=== PATIENT | female | born 1980 | race African-American/Black ===

== ENCOUNTER 2018-06-24 18:58 | Outpatient (CLI) | payer OTHER ==
[2018-06-24 21:14] LABS: ADD UMIC YES; UR ASCORBIC ACID NEGATIVE (NEGATIVE); UR BACTERIA FEW /HPF (NONE SEEN); UR BILIRUBIN (Dip) NEGATIVE (NEGATIVE); UR BLOOD (Dip) NEGATIVE (NEGATIVE); UR CLARITY SLIGHTLY CLOUDY (CLEAR); UR COLOR YELLOW (YELLOW); UR GLUCOSE (Dip) NEGATIVE (NEGATIVE); UR KETONES (Dip) NEGATIVE (NEGATIVE); UR LEUKOCYTE ESTERASE (Dip) 3+ Leu/ul (NEGATIVE); UR NITRITE (Dip) NEGATIVE (NEGATIVE); UR RBC 0 /HPF (0-5); UR SPECIFIC GRAVITY (Dip) 1.016 (1.003-1.030); UR SQUAMOUS EPITHELIAL CELL MODERATE /HPF (FEW); UR TOTAL PROTEIN (Dip) NEGATIVE (NEGATIVE); UR UROBILINOGEN (Dip) NEGATIVE (NEGATIVE); UR WBC 10 /HPF (0-5)
[2018-06-24 21:40] LABS: RUPTURE FETAL MEMBRANES NEGATIVE (NEGATIVE)
== END 2018-06-24 23:13 | disposition home or self-care (01) ==
LOC: OBT 18:58 → L-D 18:59 → OBT 23:13
DX: O47.1 False labor at or after 37 completed weeks of gestation (principal); O09.513 Supervision of elderly primigravida, third trimester; Z3A.39 39 weeks gestation of pregnancy
CPT/HCPCS: 76818; 81001; 84112; 87086

== ENCOUNTER 2018-07-01 13:03 | Inpatient (IN) | payer OTHER ==
[2018-07-01] MEDS ORDERED: OXYTOCIN 30 UNITS/LR 500 ML IV ×2 (14:00)
[2018-07-01] MEDS: MISOPROSTOL 100 MCG TAB VAG (14:00)
[2018-07-01] MEDS ORDERED: MISOPROSTOL 200 MCG TAB PR (14:00)
[2018-07-01] MEDS ORDERED: CARBOPROST 250 MCG INJ IM (14:00)
[2018-07-01] MEDS ORDERED: LIDOCAINE 1% (MPF) 30 ML INJ INJ (14:00)
[2018-07-01] MEDS: LACTATED RINGER'S 1,000 ML IV* ×2 (16:19→23:44)
[2018-07-01] MEDS: DINOPROSTONE 10 MG VAG SUPP VAG (16:19)
[2018-07-01 16:32] LABS: ADD MAN DIFF? NO
[2018-07-01 16:35] LABS: WHITE BLOOD COUNT 8.9 10^3/ul (4.8-10.8)
[2018-07-01 16:35] LABS: BASOPHILS % 0.1 % (0.0-2.0); EOSINOPHILS # 0.1 10^3/ul (0.0-0.5); EOSINOPHILS % 1.6 % (0.0-7.0); HEMATOCRIT 32.6 % (37.0-47.0); HEMOGLOBIN 10.8 g/dl (12.0-16.0); IMMATURE GRANS #M 0.05 10^3/ul; IMMATURE GRANS % (M) 0.6 %; LYMPHOCYTES # 1.9 10^3/ul (0.8-2.9); LYMPHOCYTES % 21.3 % (15.0-51.0); MEAN CORPUSCULAR HEMOGLOBIN 26.7 pg (29.0-33.0); MEAN CORPUSCULAR HGB CONC 33.1 g/dl (32.0-37.0); MEAN CORPUSCULAR VOLUME 80.5 fl (82.0-101.0); MEAN PLATELET VOLUME 9.4 fl (7.4-10.4); MONOCYTE # 0.7 10^3/ul (0.3-0.9); MONOCYTES % 8.3 % (0.0-11.0); NEUTROPHILS % 68.1 % (39.0-77.0); PLATELET COUNT 265 10^3/UL (140-415); RED BLOOD COUNT 4.05 10^6/ul (4.20-5.40); RED CELL DISTRIBUTION WIDTH 15.2 % (11.5-14.5)
[2018-07-01 16:57] LABS: INR 0.88; PT RATIO 0.9
[2018-07-01 16:58] LABS: PARTIAL THROMBOPLASTIN TIME 28.2 Sec (25.0-35.0)
[2018-07-02] MEDS: BUTORPHANOL 2 MG INJ IV ×2 (02:31→10:57)
[2018-07-02] MEDS: MISOPROSTOL 25 MCG CAPSULE PO (05:43)
[2018-07-02] MEDS: LACTATED RINGER'S 1,000 ML IV* ×3 (07:28→14:35)
[2018-07-02 08:29] LABS: HEPATITIS B SURFACE ANTIGEN NEGATIVE (NEGATIVE)
[2018-07-02] MEDS: OXYTOCIN 30 UNITS/LR 500 ML IV ×2 (09:30→16:37)
[2018-07-02] MEDS ORDERED: FENTAnyl 2MCG/ML-ROPIV 0.2% 100 ML (14:22)
[2018-07-02] MEDS ORDERED: DIPHENHYDRAMINE 50 MG INJ IV (15:00)
[2018-07-02] MEDS ORDERED: FENTAnyl 2MCG/ML-ROPIV 0.2% 100 ML BAG EPI (15:00)
[2018-07-02] MEDS ORDERED: NALOXONE (0.4 MG/ML) INJ IV (15:00)
[2018-07-02] MEDS: METHYLERGONOVINE 0.2 MG INJ IM (16:08)
[2018-07-02] MEDS ORDERED: ZOLPIDEM 5 MG TAB PO (16:30)
[2018-07-02] MEDS ORDERED: BENZOCAINE 20% 56 ML SPRAY TOP (16:30)
[2018-07-02] MEDS ORDERED: METHYLERGONOVINE 0.2 MG TAB PO (16:30)
[2018-07-02] MEDS ORDERED: NA PHOSPHATE/BIPHOS 133 ML ENEMA PR (16:30)
[2018-07-02] MEDS ORDERED: CARBOPROST 250 MCG INJ IM (16:30)
[2018-07-02] MEDS ORDERED: WITCH HAZEL/GLYCERIN PAD PR (16:30)
[2018-07-02] MEDS ORDERED: MISOPROSTOL 200 MCG TAB PR (16:30)
[2018-07-02] MEDS ORDERED: OXYTOCIN 30 UNITS/LR 500 ML IV (16:30)
[2018-07-02] MEDS ORDERED: METHYLERGONOVINE 0.2 MG INJ IM (16:30)
[2018-07-02] MEDS: ONDANSETRON 4 MG INJ IV (17:11)
[2018-07-02] MEDS: LANOLIN 7 GM TUBE TOP (18:57)
[2018-07-02 19:14] LABS: RAPID PLASMA REAGIN NONREACTIVE (NR)
[2018-07-02] MEDS: OXYCODONE/ACETAMINOPHEN (5/325) TAB PO (20:57)
[2018-07-02] MEDS: SENNA/DOCUSATE NA (8.6MG/50MG) TAB PO (20:57)
[2018-07-03] MEDS: LACTATED RINGER'S 1,000 ML IV* ×4 (00:13→16:13)
[2018-07-03] MEDS: OXYCODONE/ACETAMINOPHEN (5/325) TAB PO ×2 (01:18→20:02)
[2018-07-03 09:07] LABS: ADD MAN DIFF? NO
[2018-07-03 09:10] LABS: BASOPHILS % 0.2 % (0.0-2.0); EOSINOPHILS # 0.2 10^3/ul (0.0-0.5); EOSINOPHILS % 1.4 % (0.0-7.0); HEMATOCRIT 30.6 % (37.0-47.0); HEMOGLOBIN 9.8 g/dl (12.0-16.0); LYMPHOCYTES # 2.4 10^3/ul (0.8-2.9); LYMPHOCYTES % 18.8 % (15.0-51.0); MEAN CORPUSCULAR HEMOGLOBIN 25.7 pg (29.0-33.0); MEAN CORPUSCULAR VOLUME 80.3 fl (82.0-101.0); MEAN PLATELET VOLUME 9.6 fl (7.4-10.4); MONOCYTE # 1.3 10^3/ul (0.3-0.9); MONOCYTES % 9.8 % (0.0-11.0); NEUTROPHIL # 8.9 10^3/ul (1.6-7.5); NEUTROPHILS % 69.3 % (39.0-77.0); PLATELET COUNT 214 10^3/UL (140-415); RED BLOOD COUNT 3.81 10^6/ul (4.20-5.40); RED CELL DISTRIBUTION WIDTH 15.2 % (11.5-14.5)
[2018-07-03 09:10] LABS: WHITE BLOOD COUNT 12.9 10^3/ul (4.8-10.8)
[2018-07-03] MEDS: SENNA/DOCUSATE NA (8.6MG/50MG) TAB PO ×2 (09:11→21:01)
[2018-07-03] MEDS ORDERED: DIPHENHYDRAMINE 25 MG CAP PO (15:00)
[2018-07-03] MEDS ORDERED: ONDANSETRON 4 MG INJ IV (15:00)
[2018-07-03] MEDS: IBUPROFEN 600 MG TAB PO (15:18)
[2018-07-03] MEDS: MAGNESIUM HYDROXIDE 30ML CUP PO (21:01)
[2018-07-04] MEDS: SENNA/DOCUSATE NA (8.6MG/50MG) TAB PO (09:00)
[2018-07-04] MEDS: VARICELLA VACCINE LIVE/PF 1,350 UNIT/0.5 ML ML SC* (09:00)
[2018-07-04] MEDS: DIPHTH/TET/ACEL PERTUSS (ADULT) 0.5 ML VIAL IM* (09:00)
[2018-07-04] MEDS: MEASLES,MUMPS,RUBELLA VACCINE INJ SC* (09:00)
== END 2018-07-04 14:40 | disposition home or self-care (01) | DRG 775 ==
LOC: OBT 13:03 → L-D 13:03 → PP1 07-02 17:48 → OBT 13:21 → L-D 13:21
PROVIDERS: Obstetrics & Gynecology
PROC: 10E0XZZ Delivery of Products of Conception, External Approach (ICD-10-PCS; principal; 2018-07-02)
PROC: 10907ZC Drainage of Amniotic Fluid, Therapeutic from Products of Conception, Via Natural or Artificial Opening (ICD-10-PCS; 2018-07-02)
PROC: 4A1H7CZ Monitoring of Products of Conception, Cardiac Rate, Via Natural or Artificial Opening (ICD-10-PCS; 2018-07-02)
PROC: 3E0P7VZ Introduction of Hormone into Female Reproductive, Via Natural or Artificial Opening (ICD-10-PCS; 2018-07-02)
DX: O48.0 Post-term pregnancy (principal); O99.334 Smoking (tobacco) complicating childbirth; F17.200 Nicotine dependence, unspecified, uncomplicated; Z37.0 Single live birth; Z3A.40 40 weeks gestation of pregnancy
CPT/HCPCS: 62319; 76815; 76818; 85025; 85610; 85730; 86592; 86850; 86900; 86901; 87340; 88307; 99464